=== PATIENT | female | born 1960 | race Caucasian/White ===

== ENCOUNTER 2017-02-08 05:30 | Day surgery (SDC) | payer BC, OTHER ==
[~2017-02-08] VITALS: Ht 165.1 cm; Wt 58.1 kg
--- NOTE | ~2017-02-08 | S ---
[facility] [place] [address] SURGICAL PATH RPT PROCEDURE Name: PAVEL ROBLES Room #: DEP [facility]#: [id number] Admission: 02/08/17 Date of : 58 Discharge: 02/08/17 Report #: [id number] Path Case #: [id number] PATHOLOGY REPORT COLLECTION DATE: 02/08/2017 RECEIVED DATE: 02/08/2017 SUBMITTING PHYS: Dr. Oscar Sunshine OTHER PHYS: SPECIMEN(S) RECEIVED: A.Tumor left lower lid B.New medial margin, tumor left lower lid * * * * * * * * * * * * FINAL DIAGNOSIS: A. Skin, tumor left lower lid, excisional biopsy: - Basal cell carcinoma involving the medial margin on frozen section. B. New medial margin, tumor left lower lid: - No evidence of basal cell carcinoma on the true medial margin inked margin. (SHA:[facility]; 02/09/2017) PATHOLOGIST: Renato Ha M.D. REPORT ELECTRONICALLY SIGNED BY: Renato Ha M.D. DATE/TIME: 02/09/2017 14:07 * * * * * * * * * * * * GROSS PATHOLOGY: A. Specimen received fresh labeled "Pavel Robles part A that is part A tumor left lower lid", consists of a piece of lid that measures 1 x 1 x 0.3 cm. It is oriented by Dr. Sunshine as medial, lateral and deep. The specimen is inked as follows: Medial red, lateral yellow, and inferior or deep black. The specimen is sectioned, frozen and submitted in cassette labeled A1FS. B. Specimen received fresh labeled "Pavel Robles new medial margin left lower lid", consists of a maxwell piece of tissue measuring 0.3 x 0.2 x 0.1 cm. It is oriented by Dr. Sunshine. The true medial margin is inked red. The specimen is then submitted in toto frozen and sent in cassette labeled B1. (SHA:[facility]; 02/08/2017) FROZEN SECTION DIAGNOSIS: (Renato Ha M.D.) FSA1, tumor left lower lid: - Basal cell carcinoma extending very close to the medial margin. - These findings were discussed with Dr. Sunshine and a written report was placed in patient's chart. [address] [address] SURGICAL PATH RPT PROCEDURE Name: PAVEL ROBLES Room #: [facility]#: [id number] Admission: 02/08/17 Date of : 58 Discharge: 02/08/17 Report #: [id number] Path Case #: [id number] FSB1, new medial margin left lower lid: - No evidence of basal cell carcinoma. - These findings were discussed with Dr. Sunshine and a written report was placed in patient's chart. (SHA:[facility]; 02/08/2017) Testing performed by [facility] at [address] , [place] [address] CLINICAL HISTORY: Tumor left lower lid INITIAL CPT CODE(S): A; 76594, 31448 B; 81539, 00588 Professional services performed by [employer], [address] [place] [address]. Technical services performed by [employer], [address] [place] [address], [address], [place] [address]. [employer] [facility] [place] [address] PHONE: [phone] DIRECTOR: Juanpablo Richards M.D. * * * END OF REPORT * * *
--- NOTE | ~2017-02-08 | O ---
[facility] [place] [address] OPERATIVE REPORT Name: PAVEL ROBLES Room #: 150-13 [facility]#: [id number] Admission: 02/08/17 Attend Phys: Oscar Sunshine MD Discharge: Date of : 58 Report #: [id number] THIS REPORT FOR: //name// CC: Marlene Andujar MD FAM unknown Jonathan Sunshine DATE OF SERVICE: 02/08/2017 PREOPERATIVE DIAGNOSIS: Tumor of left lower lid and cheek. POSTOPERATIVE DIAGNOSES: Tumor of left lower lid and cheek, basal cell carcinoma PROCEDURE: Excision of basal cell carcinoma of left lower lid and cheek with frozen sections and myocutaneous flap repair of defect. SURGEON: Oscar Sunshine M.D. ADDICTION SOCIAL WORKER: None. ANESTHESIA: MAC. COMPLICATIONS: None. INDICATIONS FOR SURGERY: This pleasant 56-year-old woman has a nodular ulcerative lesion in her left lower lid in the middle portion that appears to be a basal cell carcinoma. She presents today for excision of this tumor with frozen sections and subsequent repair of that defect. Informed consent was obtained to include but not limited to the potential risk for loss of vision, bleeding, infection, failure to improve the problem, the potential need for further surgery or treatment. DESCRIPTION OF PROCEDURE: The patient was taken to the operating room where 2% Xylocaine with epinephrine mixed with equal parts of 0.75% Marcaine with Wydase was administered transcutaneously and transconjunctivally to the left lower lid, the left lateral canthus, the left cheek and the left infratemporal fossa. The patient was subsequently prepped and draped in the usual sterile fashion. A fine tip skin marking pen was then utilized to outline the lesion including 2-3 mm of normal appearing tissue. The incisions were then made perpendicularly across the eyelid margin are drawn to a point in the premalar tissues. The specimen was then oriented on a drawing for the waiting pathologist. Hemostasis was achieved in the field with diligent pinpoint monopolar cautery. The pathologist snap froze that specimen and found that it was indeed a basal cell carcinoma and that it was still positive medially. [address] [address] OPERATIVE REPORT Name: PAVEL ROBLES Room #: 150-13 [facility].#: [id number] Admission: 02/08/17 Attend Phys: Oscar Sunshine MD Discharge: Date of : 58 Report #: [id number] A medial additional section was then taken of approximately 2 mm. This included tissue right up to but not including the punctum. The pathologist snap froze that tissue and found that the margin was clear. At this point, over two-thirds of the left lower lid had been removed. A myocutaneous flap was then developed laterally. Hemostasis was then re-achieved. The flap was then advanced and closed with multiple interrupted 5-0 Vicryl sutures deep. The lateral canthus was resuspended with interrupted Vicryl sutures deep off the periosteum. The more superficial closure was accomplished with 7-0 Vicryl sutures and 6-0 plain gut sutures. The skin laterally was closed with interrupted 6-0 plain gut sutures. The wound was then cleaned and dressed with erythromycin ophthalmic ointment and the patient subsequently transported to the recovery area having tolerated the procedure well with no anesthetic or operative complications being noted. By: [id number] Oscar Sunshine MD /nt
[~2017-02-08 05:30] MED LIST: EPIPEN0.3 MG/0.1 IM
[2017-02-08 13:06] VITALS: BP 118/72
== END 2017-02-08 15:10 | disposition home or self-care (01) ==
LOC: OR 05:30 → TBA 05:30 → OR 09:28
DX: C44.119 Basal cell carcinoma of skin of left eyelid, including canthus (principal); F43.21 Adjustment disorder with depressed mood; Z85.828 Personal history of other malignant neoplasm of skin; Z98.890 Other specified postprocedural states; Z88.0 Allergy status to penicillin
CPT/HCPCS: 50010; 50101; 50398; 51636; 56528; 56531; 62110; 62850; 70005